=== PATIENT | female | born 1970 | race Caucasian/White ===

== ENCOUNTER 2022-04-12 10:26 | Inpatient (IN) | payer OTHER ==
[~2022-04-12] VITALS: Ht 157.5 cm; Wt 115.8 kg
[2022-04-12] MEDS ORDERED: ondansetron/PF 4mg/2ml inj IV STA (11:04)
[2022-04-12] MEDS ORDERED: HYDROmorphone inj. 0.5 MG/0.5 ML DISP.SYRIN IV STA (11:04)
[2022-04-12 11:22] LABS: BASOPHILS % (AUTO) 0.1 % (0-1); EOSINOPHILS % (AUTO) 0.1 % (0-6); HEMATOCRIT 46.7 % (35.0-45.0); HEMOGLOBIN 16.2 g/dl (12.0-16.0); LYMPHOCYTES # (AUTO) 1.5 X10'3 (1.1-4.8); LYMPHOCYTES % (AUTO) 11.1 % (21-51); MEAN CORPUSCULAR HEMOGLOBIN 29.9 PG (27.0-31.0); MEAN CORPUSCULAR HGB CONC 34.6 g/dL (33.0-36.5); MEAN CORPUSCULAR VOLUME 86.4 FL (78-98); MONOCYTES # (AUTO) 0.6 X10'3 (0-0.9); MONOCYTES % (AUTO) 4.5 % (2-12); NEUTROPHILS # (AUTO) 11.7 X10'3 (1.8-7.7); NEUTROPHILS % (AUTO) 84.2 % (42-75); PLATELET COUNT 351 X10'3 (140-440); RED BLOOD COUNT 5.41 X10'6 (4.20-5.60); RED CELL DISTRIBUTION WIDTH 12.9 % (11.5-14.5); WHITE BLOOD COUNT 13.9 X10'3 (4.5-11.0)
[2022-04-12 11:27] LABS: ALANINE AMINOTRANSFERASE 640 U/L (12-78); ALBUMIN 3.8 G/DL (3.4-5.0); ALBUMIN/GLOBULIN RATIO 0.8 (1.1-1.5); ALKALINE PHOSPHATASE 177 IU/L (46-116); ANION GAP 12 (8-16); ASPARTATE AMINO TRANSFERASE 613 U/L (10-37); BILIRUBIN,TOTAL 1.6 MG/DL (0.1-1.0); BLOOD UREA NITROGEN 14 MG/DL (7-18); BUN/CREATININE RATIO 14.6 (6.6-38.0); CALCIUM 9.2 MG/DL (8.5-10.1); CHLORIDE 98 MMOL/L (99-107); CREATININE 0.96 MG/DL (0.40-0.90); GLUCOSE 123 MG/DL (70-104); POTASSIUM 3.5 MMOL/L (3.5-5.1); SODIUM 135 MMOL/L (135-145); TOTAL CARBON DIOXIDE 25.3 MMOL/L (24-32); TOTAL PROTEIN 8.3 G/DL (6.4-8.2); eGFR 61 ML/MIN
[2022-04-12 11:40] LABS: LIPASE 10966 U/L (73-393)
[2022-04-12] MEDS ORDERED: ringers solution, lacted 1,000 ML IV ONE (11:50)
[2022-04-12 12:04] LABS: URINE HCG NEGATIVE (NEG)
[2022-04-12 12:06] LABS: CLARITY,URINE CLEAR (Clear); COLOR,URINE YELLOW (Yellow); GLUCOSE, URINE NEGATIVE (Neg); KETONES,URINE >=80 mg/dl (Neg); LEUKOCYTE ESTERASE ,URINE NEGATIVE (Neg); NITRITES, URINE NEGATIVE (Neg); OCCULT BLOOD,URINE MODERATE (Neg); PH,URINE 7.5 (4.8-8.0); PROTEIN,URINE TRACE mg/dl (Neg)
[2022-04-12 12:10] LABS: CHOL/HDL RATIO 2.6 (0.00-4.99); CHOLESTEROL 157 MG/DL (0-200); HDL CHOLESTEROL 60 MG/DL (35-60); LDL CHOLESTEROL 85 MG/DL (50-100); TRIGLYCERIDES 40 MG/DL (20-135)
[2022-04-12 12:13] LABS: UA COLLECTION TYPE STRAIGHT CATH
[2022-04-12 12:14] LABS: BACTERIA,URINE NONE SEEN /HPF (Neg); MUCUS STRANDS FEW /LPF (Neg); SQUAMOUS EPITHELIAL CELL,UR FEW /LPF (FEW); WBC,URINE NONE SEEN /HPF (0-4)
[2022-04-12 12:15] LABS: URINE AMPHETAMINE SCREEN POSITIVE (Neg); URINE BARBITUATE SCREEN NEGATIVE (Neg); URINE BENZODIAZEPINES SCREEN NEGATIVE (Neg); URINE CANNABINOID SCREEN NEGATIVE (Neg); URINE COCAINE SCREEN NEGATIVE (Neg); URINE METHADONE SCREEN NEGATIVE (Neg); URINE OPIATE SCREEN POSITIVE (Neg); URINE PHENCYCLIDINE SCREEN NEGATIVE (Neg)
[2022-04-12] MEDS ORDERED: iohexol 350MG/ML 100ml bottle IV ONE (12:23)
[2022-04-12] MEDS: normal saline 1000ml 1,000 ML IV SCH (13:25)
[2022-04-12] MEDS ORDERED: acetaminophen 325mg tablet PO PRN (13:25)
[2022-04-12] MEDS ORDERED: morphine 2 MG/ML inj. syringe IV PRN (13:25)
[2022-04-12] MEDS ORDERED: POTASSIUM BICARB 20meq eff tab 20 MEQ TABLET.EFF PO PRN ×2 (13:25)
[2022-04-12] MEDS ORDERED: magnesium Cl slow-release 64mg tablet PO PRN (13:25)
[2022-04-12] MEDS ORDERED: magnesium 4gm in 100ml NS 100 ML IV PRN (13:25)
[2022-04-12] MEDS ORDERED: magnesium 2GM in 50ml NS 50 ML IV PRN (13:25)
[2022-04-12] MEDS ORDERED: metroNIDAZOLE-Flagyl 500mg/NS 100 ML IV ONE (13:25)
[2022-04-12] MEDS ORDERED: CefTRIAXone/D5W-Rocephin 1gm 50 ML IV ONE (13:25)
[2022-04-12] MEDS ORDERED: HYDROmorphone inj. 0.5 MG/0.5 ML DISP.SYRIN IV ONE (13:53)
[2022-04-12 14:24] LABS: POTASSIUM 3.5 MMOL/L (3.5-5.1)
[2022-04-12] MEDS: hydrALAZINE 20mg/ml inj. IV SCH ×2 (14:36→20:33)
[2022-04-12 15:15] VITALS: BP 173/95
--- NOTE | 2022-04-12 15:48 | NUR ---
report received from vipul Schulte RN. Pt brought to O/N floor room 4023B, while primary RN was on lunch.
[2022-04-12] MEDS ORDERED: NO HOME MEDS (17:58)
[2022-04-12 18:00] VITALS: BP 151/86
[2022-04-12] MEDS: ondansetron/PF 4mg/2ml inj IV PRN (18:36)
[2022-04-12] MEDS: HYDROmorphone inj. 0.5 MG/0.5 ML DISP.SYRIN IV PRN (18:40)
--- NOTE | 2022-04-12 18:50 | NUR ---
Problems reprioritized. Patient report given, questions answered & plan of care reviewed with YUE Loredo.
--- NOTE | 2022-04-12 19:01 | NUR ---
Patient in room ORTHO 4023. I have received report from NICOL TURNER and had the opportunity to ask questions and assume patient care.
[2022-04-12] MEDS: K and/or MAG REPLACEMENT MC SCH (20:00)
[2022-04-12 22:00] VITALS: BP 147/68
[2022-04-13] MEDS: HYDROmorphone inj. 0.5 MG/0.5 ML DISP.SYRIN IV PRN ×4 (00:14→11:37)
[2022-04-13] MEDS: ondansetron/PF 4mg/2ml inj IV PRN ×2 (00:18→08:03)
[2022-04-13] MEDS: normal saline 1000ml 1,000 ML IV SCH ×3 (03:07→19:25)
[2022-04-13] MEDS: hydrALAZINE 20mg/ml inj. IV SCH ×4 (03:07→20:08)
[2022-04-13 05:56] LABS: BASOPHILS % (AUTO) 0.1 % (0-1); EOSINOPHILS # (AUTO) 0.1 X10'3 (0-0.9); EOSINOPHILS % (AUTO) 0.4 % (0-6); HEMATOCRIT 41.2 % (35.0-45.0); LYMPHOCYTES # (AUTO) 1.4 X10'3 (1.1-4.8); LYMPHOCYTES % (AUTO) 10.2 % (21-51); MEAN CORPUSCULAR HEMOGLOBIN 29.6 PG (27.0-31.0); MEAN CORPUSCULAR VOLUME 87.2 FL (78-98); MEAN PLATELET VOLUME 8.2 FL (7.4-10.4); MONOCYTES # (AUTO) 1.1 X10'3 (0-0.9); MONOCYTES % (AUTO) 8.1 % (2-12); NEUTROPHILS # (AUTO) 10.9 X10'3 (1.8-7.7); NEUTROPHILS % (AUTO) 81.2 % (42-75); PLATELET COUNT 289 X10'3 (140-440); RED BLOOD COUNT 4.72 X10'6 (4.20-5.60); WHITE BLOOD COUNT 13.4 X10'3 (4.5-11.0)
[2022-04-13 06:00] VITALS: BP 118/58
[2022-04-13 06:05] LABS: ANION GAP 9 (8-16); BLOOD UREA NITROGEN 12 MG/DL (7-18); CALCIUM 8.4 MG/DL (8.5-10.1); CHLORIDE 103 MMOL/L (99-107); CHOL/HDL RATIO 2.8 (0.00-4.99); CHOLESTEROL 133 MG/DL (0-200); GLUCOSE 95 MG/DL (70-104); HDL CHOLESTEROL 48 MG/DL (35-60); LDL CHOLESTEROL 70 MG/DL (50-100); MAGNESIUM 2.1 MG/DL (1.5-2.4); POTASSIUM 3.4 MMOL/L (3.5-5.1); SODIUM 139 MMOL/L (135-145); TOTAL CARBON DIOXIDE 26.8 MMOL/L (24-32); TRIGLYCERIDES 42 MG/DL (20-135); eGFR 75 ML/MIN
--- NOTE | 2022-04-13 06:16 | NUR ---
Problems reprioritized. Patient report given, questions answered & plan of care reviewed with LUKAS TURNER.
[2022-04-13] MEDS: K and/or MAG REPLACEMENT MC SCH ×2 (08:00→20:00)
[2022-04-13] MEDS: potassium CL 10mEq/100ml bag 100 ML IV PRN ×3 (08:48→16:31)
[2022-04-13 10:00] VITALS: BP 126/77
[2022-04-13] MEDS ORDERED: naloxone 0.4 mg/ml inj IV PRN (12:15)
[2022-04-13] MEDS ORDERED: normal saline 1000ml 1,000 ML IV SCH (12:15)
[2022-04-13] MEDS: HYDROmorph/NS 0.2 mg/ml PCA 100 ML IV SCH ×7 (13:00→23:00)
[2022-04-13 17:00] LABS: ALANINE AMINOTRANSFERASE 396 U/L (12-78); ALBUMIN/GLOBULIN RATIO 0.8 (1.1-1.5); ALKALINE PHOSPHATASE 150 IU/L (46-116); ASPARTATE AMINO TRANSFERASE 203 U/L (10-37); BILIRUBIN,DIRECT 0.3 MG/DL (0-0.3); BILIRUBIN,TOTAL 0.6 MG/DL (0.1-1.0); TOTAL PROTEIN 6.7 G/DL (6.4-8.2)
[2022-04-13 17:32] LABS: LIPASE 3420 U/L (73-393)
[2022-04-13 18:00] VITALS: BP 133/65
--- NOTE | 2022-04-13 18:50 | NUR ---
Problems reprioritized. Patient report given, questions answered & plan of care reviewed with
--- NOTE | 2022-04-13 19:10 | NUR ---
Patient in room ORTHO 4023. I have received report from LUKAS TURNER and had the opportunity to ask questions and assume patient care.
[2022-04-13] MEDS: levoFLOXACIN-Levaquin 500mg/D5 100 ML IV SCH (19:56)
[2022-04-13] MEDS: docusate sod 100mg capsule PO SCH (20:00)
[2022-04-13 22:00] VITALS: BP 148/82
[2022-04-14] MEDS: HYDROmorph/NS 0.2 mg/ml PCA 100 ML IV SCH ×12 (01:00→23:00)
[2022-04-14] MEDS: metroNIDAZOLE-Flagyl 500mg/NS 100 ML IV SCH ×3 (01:03→15:38)
[2022-04-14] MEDS: hydrALAZINE 20mg/ml inj. IV SCH ×4 (02:28→19:36)
[2022-04-14 05:53] LABS: BASOPHILS % (AUTO) 0.1 % (0-1); EOSINOPHILS % (AUTO) 0.2 % (0-6); HEMOGLOBIN 12.9 g/dl (12.0-16.0); LYMPHOCYTES # (AUTO) 1.6 X10'3 (1.1-4.8); MEAN CORPUSCULAR HEMOGLOBIN 29.1 PG (27.0-31.0); MEAN CORPUSCULAR HGB CONC 33.1 g/dL (33.0-36.5); MEAN CORPUSCULAR VOLUME 87.9 FL (78-98); MONOCYTES # (AUTO) 1.6 X10'3 (0-0.9); MONOCYTES % (AUTO) 8.8 % (2-12); NEUTROPHILS # (AUTO) 14.9 X10'3 (1.8-7.7); NEUTROPHILS % (AUTO) 81.9 % (42-75); PLATELET COUNT 275 X10'3 (140-440); RED BLOOD COUNT 4.44 X10'6 (4.20-5.60); RED CELL DISTRIBUTION WIDTH 13.3 % (11.5-14.5); WHITE BLOOD COUNT 18.1 X10'3 (4.5-11.0)
[2022-04-14 06:20] LABS: ALANINE AMINOTRANSFERASE 203 U/L (12-78); ALBUMIN 2.6 G/DL (3.4-5.0); ALBUMIN/GLOBULIN RATIO 0.7 (1.1-1.5); ALKALINE PHOSPHATASE 118 IU/L (46-116); ANION GAP 8 (8-16); ASPARTATE AMINO TRANSFERASE 65 U/L (10-37); BILIRUBIN,TOTAL 0.7 MG/DL (0.1-1.0); BLOOD UREA NITROGEN 10 MG/DL (7-18); BUN/CREATININE RATIO 15.4 (6.6-38.0); CALCIUM 8.3 MG/DL (8.5-10.1); CHLORIDE 102 MMOL/L (99-107); CREATININE 0.65 MG/DL (0.40-0.90); GLUCOSE 87 MG/DL (70-104); LIPASE 627 U/L (73-393); MAGNESIUM 1.9 MG/DL (1.5-2.4); SODIUM 135 MMOL/L (135-145); TOTAL CARBON DIOXIDE 25.1 MMOL/L (24-32); TOTAL PROTEIN 6.4 G/DL (6.4-8.2); eGFR > 90 ML/MIN
--- NOTE | 2022-04-14 06:25 | NUR ---
Patient in room ORTHO 4023. I have received report from Gertrude TURNER and had the opportunity to ask questions and assume patient care.
[2022-04-14 06:30] LABS: POTASSIUM 3.9 MMOL/L (3.5-5.1)
[2022-04-14 07:00] VITALS: BP 125/57
[2022-04-14] MEDS: K and/or MAG REPLACEMENT MC SCH ×2 (08:00→19:21)
[2022-04-14] MEDS: docusate sod 100mg capsule PO SCH ×2 (08:00→19:36)
[2022-04-14] MEDS: levoFLOXACIN-Levaquin 500mg/D5 100 ML IV SCH (08:06)
[2022-04-14] MEDS: normal saline 1000ml 1,000 ML IV SCH ×3 (08:13→19:33)
[2022-04-14 10:00] VITALS: BP 135/73
[2022-04-14] MEDS: ondansetron/PF 4mg/2ml inj IV PRN (13:01)
--- NOTE | 2022-04-14 14:03 | NUR ---
using dilaudid cadd with good effect. Zofran given x1 for nausea with good effect
[2022-04-14 18:00] VITALS: BP 162/64
--- NOTE | 2022-04-14 18:30 | NUR ---
Problems reprioritized. Patient report given, questions answered & plan of care reviewed with Gustavo TURNER.
--- NOTE | 2022-04-14 18:35 | NUR ---
Patient in room ORTHO 4023. I have received report from IRLANDA TURNER and had the opportunity to ask questions and assume patient care.
[2022-04-14 22:00] VITALS: BP 145/86
[2022-04-15] MEDS: metroNIDAZOLE-Flagyl 500mg/NS 100 ML IV SCH ×3 (00:30→16:43)
[2022-04-15] MEDS: HYDROmorph/NS 0.2 mg/ml PCA 100 ML IV SCH ×10 (01:00→19:00)
[2022-04-15] MEDS: hydrALAZINE 20mg/ml inj. IV SCH ×4 (02:11→21:29)
[2022-04-15] MEDS: normal saline 1000ml 1,000 ML IV SCH ×2 (05:17→19:28)
[2022-04-15 06:00] VITALS: BP 165/95
--- NOTE | 2022-04-15 06:20 | NUR ---
Problems reprioritized. Patient report given, questions answered & plan of care reviewed with LEXA TURNER.
[2022-04-15 07:02] LABS: BASOPHILS % (AUTO) 0.2 % (0-1); EOSINOPHILS % (AUTO) 0.2 % (0-6); HEMATOCRIT 38.1 % (35.0-45.0); HEMOGLOBIN 12.7 g/dl (12.0-16.0); LYMPHOCYTES # (AUTO) 1.7 X10'3 (1.1-4.8); LYMPHOCYTES % (AUTO) 9.6 % (21-51); MEAN CORPUSCULAR HEMOGLOBIN 29.4 PG (27.0-31.0); MEAN CORPUSCULAR HGB CONC 33.4 g/dL (33.0-36.5); MEAN PLATELET VOLUME 8.3 FL (7.4-10.4); MONOCYTES # (AUTO) 1.3 X10'3 (0-0.9); MONOCYTES % (AUTO) 7.5 % (2-12); NEUTROPHILS # (AUTO) 14.4 X10'3 (1.8-7.7); NEUTROPHILS % (AUTO) 82.5 % (42-75); PLATELET COUNT 272 X10'3 (140-440); RED BLOOD COUNT 4.32 X10'6 (4.20-5.60); RED CELL DISTRIBUTION WIDTH 13.7 % (11.5-14.5); WHITE BLOOD COUNT 17.4 X10'3 (4.5-11.0)
[2022-04-15 07:20] LABS: ALBUMIN 2.5 G/DL (3.4-5.0); ANION GAP 7 (8-16); BLOOD UREA NITROGEN 9 MG/DL (7-18); BUN/CREATININE RATIO 15.5 (6.6-38.0); CALCIUM 8.6 MG/DL (8.5-10.1); CHLORIDE 104 MMOL/L (99-107); CREATININE 0.58 MG/DL (0.40-0.90); GLUCOSE 97 MG/DL (70-104); LIPASE 343 U/L (73-393); POTASSIUM 3.8 MMOL/L (3.5-5.1); SODIUM 139 MMOL/L (135-145); TOTAL CARBON DIOXIDE 27.6 MMOL/L (24-32); eGFR > 90 ML/MIN
[2022-04-15] MEDS: K and/or MAG REPLACEMENT MC SCH ×2 (08:00→20:00)
[2022-04-15] MEDS: docusate sod 100mg capsule PO SCH ×2 (08:00→20:00)
[2022-04-15] MEDS: levoFLOXACIN-Levaquin 500mg/D5 100 ML IV SCH (08:03)
[2022-04-15 10:00] VITALS: BP 160/74
[2022-04-15 10:23] LABS: ALANINE AMINOTRANSFERASE 140 U/L (12-78); ALBUMIN/GLOBULIN RATIO 0.6 (1.1-1.5); ALKALINE PHOSPHATASE 112 IU/L (46-116); ASPARTATE AMINO TRANSFERASE 33 U/L (10-37); BILIRUBIN,DIRECT 0.3 MG/DL (0-0.3); BILIRUBIN,TOTAL 0.5 MG/DL (0.1-1.0); TOTAL PROTEIN 6.5 G/DL (6.4-8.2)
--- NOTE | 2022-04-15 13:33 | NUR ---
Met with patient in regards to substance use and to see if patient wanted resources for treatment options. Patient declined resources and stated she has no idea how drugs got into her system.
--- NOTE | 2022-04-15 14:45 | NUR ---
relieving RN for break, pt is resting quietly on bed
[2022-04-15 18:00] VITALS: BP 118/67
--- NOTE | 2022-04-15 18:30 | NUR ---
Patient in room ORTHO 4015. I have received report from LEXA TURNER and had the opportunity to ask questions and assume patient care.
[2022-04-15] MEDS: ondansetron/PF 4mg/2ml inj IV PRN (19:28)
[2022-04-15 22:00] VITALS: BP 159/86
[2022-04-16] VITALS (7 sets, daily range): BP systolic 144–187; BP diastolic 78–97
[2022-04-16] MEDS: metroNIDAZOLE-Flagyl 500mg/NS 100 ML IV SCH ×4 (00:10→23:59)
[2022-04-16] MEDS: hydrALAZINE 20mg/ml inj. IV SCH ×4 (02:57→19:51)
[2022-04-16] MEDS: normal saline 1000ml 1,000 ML IV SCH ×2 (05:41→18:05)
[2022-04-16] MEDS ORDERED: PCA WASTE DOCUMENTATION MC PRN (06:00)
--- NOTE | 2022-04-16 06:30 | NUR ---
Problems reprioritized. Patient report given, questions answered & plan of care reviewed with PHILOMENA TURNER.
--- NOTE | 2022-04-16 06:30 | NUR ---
Patient in room ORTHO 4015. I have received report from Arely Mcgee RN and had the opportunity to ask questions and assume patient care.
[2022-04-16 07:13] LABS: BASOPHILS % (AUTO) 0.2 % (0-1); EOSINOPHILS # (AUTO) 0.1 X10'3 (0-0.9); EOSINOPHILS % (AUTO) 1.1 % (0-6); HEMOGLOBIN 12.3 g/dl (12.0-16.0); LYMPHOCYTES # (AUTO) 1.4 X10'3 (1.1-4.8); MEAN CORPUSCULAR HEMOGLOBIN 29.2 PG (27.0-31.0); MEAN CORPUSCULAR HGB CONC 33.2 g/dL (33.0-36.5); MEAN CORPUSCULAR VOLUME 87.9 FL (78-98); MEAN PLATELET VOLUME 7.9 FL (7.4-10.4); MONOCYTES # (AUTO) 1.1 X10'3 (0-0.9); MONOCYTES % (AUTO) 9.5 % (2-12); NEUTROPHILS # (AUTO) 9.1 X10'3 (1.8-7.7); NEUTROPHILS % (AUTO) 77.2 % (42-75); PLATELET COUNT 283 X10'3 (140-440); RED BLOOD COUNT 4.21 X10'6 (4.20-5.60); RED CELL DISTRIBUTION WIDTH 13.5 % (11.5-14.5); WHITE BLOOD COUNT 11.8 X10'3 (4.5-11.0)
[2022-04-16 07:36] LABS: ALBUMIN 2.4 G/DL (3.4-5.0); ANION GAP 8 (8-16); BLOOD UREA NITROGEN 8 MG/DL (7-18); BUN/CREATININE RATIO 15.4 (6.6-38.0); CALCIUM 8.2 MG/DL (8.5-10.1); CHLORIDE 105 MMOL/L (99-107); CREATININE 0.52 MG/DL (0.40-0.90); GLUCOSE 91 MG/DL (70-104); LIPASE 281 U/L (73-393); MAGNESIUM 1.9 MG/DL (1.5-2.4); POTASSIUM 3.4 MMOL/L (3.5-5.1); SODIUM 141 MMOL/L (135-145); TOTAL CARBON DIOXIDE 28.1 MMOL/L (24-32); eGFR > 90 ML/MIN
[2022-04-16] MEDS: docusate sod 100mg capsule PO SCH ×2 (07:46→19:18)
[2022-04-16] MEDS: levoFLOXACIN-Levaquin 500mg/D5 100 ML IV SCH (07:47)
--- NOTE | 2022-04-16 07:54 | NUR ---
Initial: Pt admitted w/ acute pancreatitis and cholelithiasis per EMR. Pt has been NPO since admit. Most up-to-date pancreatitis management guidelines recommend early initiation of oral or enteral feedings. Recommend advancing this pt to Regular diet as tolerated. LBM 04/11. Pt is at high risk for developing malnutrition if diet will not be advanced. Will continue to monitor. Recs; 1. Advance to Regular diet as tolerated 2. Bowel care per rx 3. Weekly wts Addendum: 04/16/22 at [address] Amended: Links added.
[2022-04-16] MEDS: K and/or MAG REPLACEMENT MC SCH ×3 (08:00→19:56)
[2022-04-16] MEDS: HYDROmorphone inj. 0.5 MG/0.5 ML DISP.SYRIN IV PRN ×3 (11:22→22:23)
--- NOTE | 2022-04-16 16:16 | NUR ---
PAGER ID: [phone] MESSAGE: Argelia Miriam#[phone]- Pt's daughter is at bed side and has questions, wants to talk to you, also pt is very hungry. Do you want to start clears?? thank you Debbie lyons [phone]
--- NOTE | 2022-04-16 18:36 | NUR ---
Problems reprioritized. Patient report given, questions answered & plan of care reviewed with lindsay ANDINO.
[2022-04-16] MEDS ORDERED: magnesium 4gm in 100ml NS 100 ML IV PRN (19:15)
[2022-04-16] MEDS ORDERED: magnesium Cl slow-release 64mg tablet PO PRN (19:15)
[2022-04-16] MEDS ORDERED: magnesium 2GM in 50ml NS 50 ML IV PRN (19:15)
[2022-04-16] MEDS ORDERED: POTASSIUM BICARB 20meq eff tab 20 MEQ TABLET.EFF PO PRN (19:15)
[2022-04-16] MEDS: potassium CL 10mEq/100ml bag 100 ML IV PRN ×3 (19:53→22:45)
[2022-04-17] VITALS (18 sets, daily range): BP systolic 108–187; BP diastolic 64–123
[2022-04-17] MEDS: potassium CL 10mEq/100ml bag 100 ML IV PRN (01:23)
[2022-04-17] MEDS: hydrALAZINE 20mg/ml inj. IV SCH ×5 (01:23→22:13)
[2022-04-17] MEDS: HYDROmorphone inj. 0.5 MG/0.5 ML DISP.SYRIN IV PRN ×2 (02:25→11:02)
--- NOTE | 2022-04-17 03:18 | NUR ---
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
--- NOTE | 2022-04-17 06:25 | NUR ---
Problems reprioritized. Patient report given, questions answered & plan of care reviewed with Chacha TURNER.
[2022-04-17 06:45] LABS: BASOPHILS % (AUTO) 0.3 % (0-1); EOSINOPHILS # (AUTO) 0.1 X10'3 (0-0.9); EOSINOPHILS % (AUTO) 0.9 % (0-6); HEMOGLOBIN 12.9 g/dl (12.0-16.0); LYMPHOCYTES # (AUTO) 1.3 X10'3 (1.1-4.8); LYMPHOCYTES % (AUTO) 13.6 % (21-51); MEAN CORPUSCULAR HEMOGLOBIN 29.8 PG (27.0-31.0); MEAN CORPUSCULAR VOLUME 87.6 FL (78-98); MEAN PLATELET VOLUME 7.6 FL (7.4-10.4); MONOCYTES # (AUTO) 0.9 X10'3 (0-0.9); MONOCYTES % (AUTO) 9.4 % (2-12); NEUTROPHILS % (AUTO) 75.8 % (42-75); PLATELET COUNT 302 X10'3 (140-440); RED BLOOD COUNT 4.33 X10'6 (4.20-5.60); RED CELL DISTRIBUTION WIDTH 13.2 % (11.5-14.5); WHITE BLOOD COUNT 9.3 X10'3 (4.5-11.0)
--- NOTE | 2022-04-17 06:51 | NUR ---
Patient in room ORTHO 4015. I have received report from YUE Shanks and had the opportunity to ask questions and assume patient care.
[2022-04-17 06:57] LABS: ALBUMIN 2.4 G/DL (3.4-5.0); ANION GAP 7 (8-16); BLOOD UREA NITROGEN 8 MG/DL (7-18); BUN/CREATININE RATIO 13.6 (6.6-38.0); CALCIUM 8.4 MG/DL (8.5-10.1); CHLORIDE 104 MMOL/L (99-107); CREATININE 0.59 MG/DL (0.40-0.90); GLUCOSE 88 MG/DL (70-104); LIPASE 317 U/L (73-393); POTASSIUM 3.3 MMOL/L (3.5-5.1); SODIUM 138 MMOL/L (135-145); TOTAL CARBON DIOXIDE 27.4 MMOL/L (24-32); eGFR > 90 ML/MIN
[2022-04-17] MEDS: levoFLOXACIN-Levaquin 500mg/D5 100 ML IV SCH (07:32)
[2022-04-17] MEDS: POTASSIUM BICARB 20meq eff tab 20 MEQ TABLET.EFF PO PRN ×2 (07:32→20:23)
[2022-04-17] MEDS: K and/or MAG REPLACEMENT MC SCH ×4 (07:50→20:00)
[2022-04-17] MEDS: docusate sod 100mg capsule PO SCH ×2 (07:50→20:23)
[2022-04-17] MEDS: metroNIDAZOLE-Flagyl 500mg/NS 100 ML IV SCH ×2 (09:11→16:53)
[2022-04-17] MEDS: ondansetron/PF 4mg/2ml inj IV PRN (09:22)
[2022-04-17] MEDS ORDERED: fentaNYL/PF 50MCG/1 ML 2ML syringe IV PRN ×2 (11:20)
[2022-04-17] MEDS ORDERED: hydrALAZINE 20mg/ml inj. IV PRN ×2 (11:20→22:20)
[2022-04-17] MEDS ORDERED: morphine 4 MG/ML inj SYRINge IV PRN (11:20)
[2022-04-17] MEDS ORDERED: ringers solution, lacted 1,000 ML IV SCH (11:20)
[2022-04-17] MEDS ORDERED: ondansetron/PF 4mg/2ml inj IV PRN (11:20)
[2022-04-17] MEDS ORDERED: labetalol 20mg/4ml (5mg/ml) syringe IV PRN (11:20)
[2022-04-17] MEDS ORDERED: morphine 2 MG/ML inj. syringe IV PRN (11:20)
[2022-04-17] MEDS ORDERED: INDOCYANINE GREEN 25 MG/10 ML VIAL IV STA (11:49)
[2022-04-17] MEDS ORDERED: LIDOcaine 1% 30ml preserv. free vial ONE (13:22)
[2022-04-17] MEDS ORDERED: BUPIVAcaine/PF 2.5 mg/ml (0.25%) 30ml vial ONE (13:22)
[2022-04-17] MEDS ORDERED: sevoflurane 250ml liquid IH ONE (13:23)
[2022-04-17] MEDS ORDERED: dexamethasone sod phosphate 10mg/ml inj ONE (13:23)
[2022-04-17] MEDS ORDERED: neostigmine methylsulfate 1 MG/ML 10ml vial ONE (13:23)
[2022-04-17] MEDS ORDERED: fentaNYL/PF 50MCG/1 ML 2ML syringe ONE (13:32)
[2022-04-17] MEDS ORDERED: midazolam 1 mg/ML 2ml injection ONE (13:32)
[2022-04-17] MEDS ORDERED: rocuronium 10mg/ml inj IV ONE (13:37)
[2022-04-17] MEDS ORDERED: LIDOcaine 2% (20mg/ml) 5ml vial ONE (13:37)
[2022-04-17] MEDS ORDERED: propofol inj 20 ML IV ONE (13:37)
[2022-04-17] MEDS ORDERED: ondansetron/PF 4mg/2ml inj ONE (13:40)
[2022-04-17] MEDS ORDERED: ceFAZolin 1000mg inj ONE ×3 (13:41→13:43)
[2022-04-17] MEDS ORDERED: glycopyrrolate 0.2mg/ml inj ONE (14:30)
--- NOTE | 2022-04-17 14:35 | NUR ---
ALL DC CRITERIA TO THE FLOOR HAS BEEN MET. VSS. PAIN AT A TOLERABLE LEVEL AT THIS TIME. PATIENT TAKEN TO 4TH FLOOR. VS SET UP AND BED LOW. CALL LIGHT PRESENT AND 2 RAILS UP. PATIENT HAS NO BELONGINGS FROM OR. RN AWARE THAT PATIENT IS BACK IN HER ROOM. Addendum: 04/17/22 at 1549 by Jed Christensen RN, RN Amended: Links added.
--- NOTE | 2022-04-17 14:45 | NUR ---
Received from OR via SURGICAL BED , accompanied by Anesthesiologist JEFF and report given by Anesthesiolgist. PATIENT WITH 20G PIV IN RIGHT UE WELL A 22G PIV IN LEFT. DONNED BEDPAN VIA ROLLING FOR A LARGE VOID. 4 ABDOMINAL LAP SITES THAT ARE CDI. VSS. SCDS DONNED. Addendum: 04/17/22 at 1519 by Jed Christensen RN, RN Amended: Links added.
[2022-04-17] MEDS ORDERED: naloxone 0.4 mg/ml inj IV PRN (14:50)
[2022-04-17] MEDS ORDERED: HYDROcodone/acetaminophen 10/325mg tab PO PRN (14:50)
[2022-04-17] MEDS ORDERED: HYDROcodone/acetaminophen 5mg/325mg tablet PO PRN (14:50)
[2022-04-17] MEDS: normal saline 1000ml 1,000 ML IV SCH ×2 (16:53→18:00)
--- NOTE | 2022-04-17 17:46 | NUR ---
PAGER ID: [phone] MESSAGE: Chacha [phone] RE: Helena Pineda room 4015A- returned from surgery at 1611 - blood pressure 187/99 HR 64
--- NOTE | 2022-04-17 18:37 | NUR ---
Problems reprioritized. Patient report given, questions answered & plan of care reviewed with YUE Shanks and Karo.
[2022-04-18] MEDS: metroNIDAZOLE-Flagyl 500mg/NS 100 ML IV SCH ×2 (00:10→09:25)
[2022-04-18] MEDS: POTASSIUM BICARB 20meq eff tab 20 MEQ TABLET.EFF PO PRN (00:10)
[2022-04-18 02:00] VITALS: BP 140/76
--- NOTE | 2022-04-18 03:33 | NUR ---
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
[2022-04-18] MEDS: normal saline 1000ml 1,000 ML IV SCH (04:10)
[2022-04-18 06:00] VITALS: BP 159/86
--- NOTE | 2022-04-18 06:06 | NUR ---
Problems reprioritized. Patient report given, questions answered & plan of care reviewed with Chacha TURNER.
--- NOTE | 2022-04-18 06:24 | NUR ---
Patient in room ORTHO 4015. I have received report from YUE Shanks and Karo and had the opportunity to ask questions and assume patient care.
[2022-04-18] MEDS: K and/or MAG REPLACEMENT MC SCH ×2 (07:16→07:17)
[2022-04-18] MEDS: levoFLOXACIN-Levaquin 500mg/D5 100 ML IV SCH (07:19)
[2022-04-18] MEDS: docusate sod 100mg capsule PO SCH (07:20)
--- NOTE | 2022-04-18 09:47 | NUR ---
Reassessment: Pt POD #1 s/p laparoscopic cholecystectomy. Diet has been advanced to clear liquids and pt documented with 100% PO intake of first meal, though not able to meet estimated nutrient needs on current diet. Recommend advancing to regular diet as medically indicated. LBM 04/16 documented as small per I&O, first documented BM since admit. Pt receiving routine bowel care. Limited nutrition interventions at this time in view of current diet order. Will continue to follow closely. Recommendations 1. Advance to regular diet as medically indicated 2. Routine bowel care; consider additional given no significant BM since admit 3. Weekly scaled weights Addendum: 04/18/22 at [address] Amended: Links added.
[2022-04-18 10:00] VITALS: BP 127/79
--- NOTE | 2022-04-18 13:29 | NUR ---
Patient was discharged at 1320 with instructions and verbalizing understanding of instructions, in wheelchair accompanied by nursing staff and family, going home via private vehicle. All lines and tubes including PIV with cannula intact have been removed. No new medications have been prescribed. Postop education has been provided and all questions have been answered. Patient will set up her follow up appointment with Dr. Montenegro in 2 weeks. Patient is stable and appropriate for discharge.
== END 2022-04-18 13:20 | disposition home or self-care (01) | DRG 418 ==
LOC: ER 10:26 → ED HOLD 13:24 → EDBEDREQ 14:22 → ORTHO 4S 15:00
PROVIDERS: ADMIT Internal Medicine; ATTEND Internal Medicine
PROC: BW211ZZ Computerized Tomography (CT Scan) of Abdomen and Pelvis using Low Osmolar Contrast (ICD-10-PCS; 2022-04-12)
PROC: 8E0W4CZ Robotic Assisted Procedure of Trunk Region, Percutaneous Endoscopic Approach (ICD-10-PCS; 2022-04-17)
PROC: BF532Z0 Other Imaging of Gallbladder and Bile Ducts using Fluorescing Agent, Intraoperative (ICD-10-PCS; 2022-04-17)
PROC: 0FT44ZZ Resection of Gallbladder, Percutaneous Endoscopic Approach (ICD-10-PCS; principal; 2022-04-17 13:23)
DX: K85.10 Biliary acute pancreatitis without necrosis or infection (principal); Z68.42 Body mass index [BMI] 45.0-49.9, adult; K80.20 Calculus of gallbladder without cholecystitis without obstruction; E66.01 Morbid (severe) obesity due to excess calories; E87.6 Hypokalemia; K76.0 Fatty (change of) liver, not elsewhere classified; F15.10 Other stimulant abuse, uncomplicated; D72.829 Elevated white blood cell count, unspecified; R03.0 Elevated blood-pressure reading, without diagnosis of hypertension; R74.01 Elevation of levels of liver transaminase levels; R79.89 Other specified abnormal findings of blood chemistry; Z88.0 Allergy status to penicillin; Z88.2 Allergy status to sulfonamides; Z71.51 Drug abuse counseling and surveillance of drug abuser
CPT/HCPCS: 96361; 96374; 96375; 99285; Z7506; Z7508; 36415; 74177; 74181; 76700; 80048; 80053; 80061; 80076; 80305; 81001; 81025; 82948; 83690; 83735; 84132; 85025; 87081; 87635; 93005; A4215; A4353; A4615; A4618; A7000; G0378; J0360; J0690; J0696; J1100; J1170; J1956; J2250; J2405; J2704; J2710; J3010; J3480; J3490; J7030; J7120; Q9967

== ENCOUNTER 2025-05-12 06:22 | Day surgery (SDC) | payer BC ==
[~2025-05-12] VITALS: Ht 157.5 cm; Wt 126.1 kg
[2025-05-12] VITALS (7 sets, daily range): BP systolic 129–147; BP diastolic 71–92; PULSE 67–73; RESP 12–18; TEMP 97.2; O2SAT 95–99
[~2025-05-12 06:22] MED LIST: HYDR25TA4 PO; LEVO50TA8 PO; LOSA50TA64 PO
[2025-05-12] MEDS: ringers solution, lacted 1,000 ML IV SCH (06:54)
--- NOTE | 2025-05-12 06:59 | ELECTROCARDIOGRAPH REPORT ---
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 TERRELL Francois Measurements Intervals [place] Rate: 55 P: 83 NH: 187 QRS: 68 QRSD: 87 T: 4 QT: 431 QTc: 413 Interpretive Statements Sinus rhythm Baseline wander in lead(s) V1 Electronically Signed On 05-12-2025 18:04:[address] TERRELL Francois Please click the below link to view image of tracing.
[2025-05-12] MEDS ORDERED: propofol inj 20 ML IV ONE ×2 (08:27→09:00)
[2025-05-12] MEDS ORDERED: midazolam 1 mg/ML 2ml injection ONE (08:46)
[2025-05-12] MEDS ORDERED: fentaNYL/PF 50MCG/1 ML 2ML syringe ONE (08:46)
== END 2025-05-12 10:25 | disposition home or self-care (01) ==
LOC: GI LAB 06:22
PROVIDERS: ATTEND Internal Medicine Gastroenterology
DX: Z12.11 Encounter for screening for malignant neoplasm of colon (principal); K57.30 Diverticulosis of large intestine without perforation or abscess without bleeding; K62.1 Rectal polyp; K63.5 Polyp of colon; I10 Essential (primary) hypertension; E03.9 Hypothyroidism, unspecified; E66.9 Obesity, unspecified; Z87.891 Personal history of nicotine dependence; Z79.890 Hormone replacement therapy; Z79.899 Other long term (current) drug therapy; Z90.49 Acquired absence of other specified parts of digestive tract; Z68.43 Body mass index [BMI] 50.0-59.9, adult; Z88.0 Allergy status to penicillin; Z88.1 Allergy status to other antibiotic agents; Z88.2 Allergy status to sulfonamides; Z88.8 Allergy status to other drugs, medicaments and biological substances
CPT/HCPCS: 45385; 93005; J2250; J2704; J3010; J7120; Z7512; A4620